=== PATIENT | female | born 1960 | race Caucasian/White ===

== ENCOUNTER 2018-07-23 13:30 | Inpatient (IN) | payer BC ==
[2018-07-27] MEDS ORDERED: ACETAMINOPHEN 500 MG TABLET PO ONE (06:00)
[2018-07-27] MEDS ORDERED: CELECOXIB 100 MG CAPSULE PO ONE (06:00)
[2018-07-27] MEDS ORDERED: METOCLOPRAMIDE 10 MG TABLET PO ONE (06:00)
[2018-07-27] MEDS ORDERED: VANCOMYCIN 1GM/200ML PREMIX 1 GM/200 ML PIGGYBACK IVPB ONE (06:00)
[2018-07-27] MEDS ORDERED: FAMOTIDINE 20MG TABLET PO ONE (06:00)
[2018-07-27] MEDS ORDERED: SCOPOLAMINE 1 PATCH TDSY TD ONE (06:00)
[2018-07-27] MEDS ORDERED: CEFAZOLIN 2 Gram 2 GM/50 ML BAG IVPB ONE (06:00)
[2018-08-17] MEDS ORDERED: VANCOMYCIN 1GM/200ML PREMIX 1 GM/200 ML PIGGYBACK IVPB ONE (06:00)
[2018-08-17] MEDS ORDERED: ACETAMINOPHEN 500 MG TABLET PO ONE (06:00)
[2018-08-17] MEDS ORDERED: CELECOXIB 100 MG CAPSULE PO ONE (06:00)
[2018-08-17] MEDS ORDERED: FAMOTIDINE 20MG TABLET PO ONE (06:00)
[2018-08-17] MEDS ORDERED: SCOPOLAMINE 1 PATCH TDSY TD ONE (06:00)
[2018-08-17] MEDS ORDERED: CEFAZOLIN 2 Gram 2 GM/50 ML BAG IVPB ONE (06:00)
[2018-08-17] MEDS ORDERED: METOCLOPRAMIDE 10 MG TABLET PO ONE (06:00)
[2018-08-17] MEDS ORDERED: RINGERS SOLUTION,LACTATED 1,000 ML IV ONE ×3 (10:45→14:40)
[2018-08-17 11:30] LABS: ABO GROUP O; ANTIBODY SCREEN NEGATIVE (NEGATIVE); RH TYPE POSITIVE
[2018-08-17] MEDS ORDERED: BUPIVACAINE LIPOSOME 266MG/20ML VIAL SQ ONE (13:30)
[2018-08-17] MEDS ORDERED: BUPIVACAINE 0.5% W/EPI MPF 30 ML VIAL SQ ONE (13:30)
[2018-08-17] MEDS ORDERED: VANCOMYCIN HCL 3,000 MG in RINGERS SOLUTION,LACTATED 3,000 ML IVPB ONE (13:30)
[2018-08-17] MEDS ORDERED: METOCLOPRAMIDE HCL 10 MG/2 ML VIAL IVP PRN (14:51)
[2018-08-17] MEDS ORDERED: ZOLPIDEM TARTRATE 5 MG TABLET PO PRN (14:51)
[2018-08-17] MEDS ORDERED: ACETAMINOPHEN W/ CODEINE 300MG/60MG TABLET PO PRN ×2 (14:51)
[2018-08-17] MEDS ORDERED: NALOXONE 0.4 MG/1 ML VIAL IVP PRN (14:51)
[2018-08-17] MEDS ORDERED: DIPHENHYDRAMINE HCL 25 MG CAPSULE PO PRN (14:51)
[2018-08-17] MEDS ORDERED: ONDANSETRON HCL IV 4 MG/2 ML VIAL IVP PRN (14:51)
[2018-08-17] MEDS ORDERED: HYDROCODONE/APAP 5/325MG TABLET PO PRN (14:51)
[2018-08-17] MEDS ORDERED: ACETAMINOPHEN 325 MG TAB PO PRN (14:51)
[2018-08-17] MEDS ORDERED: ACETAMINOPHEN W/ CODEINE 300MG/30MG TABLET PO PRN ×2 (14:51)
[2018-08-17] MEDS ORDERED: KETOROLAC 30 MG/ML VIAL IVP PRN ×2 (14:51)
[2018-08-17] MEDS ORDERED: AL HYDROX/MAG HYDROX 30ML UD PO PRN (14:51)
[2018-08-17] MEDS ORDERED: MAGNESIUM HYDROXIDE 30 ML UDC PO PRN (14:51)
[2018-08-17] MEDS ORDERED: HYDROMORPHONE HCL 2 MG/ML VIAL IM PRN ×2 (14:51)
[2018-08-17] MEDS ORDERED: BISACODYL 10 MG SUPP RC PRN (14:51)
[2018-08-17] MEDS ORDERED: HYDROCODONE/APAP 7.5/325MG TABLET PO PRN ×2 (14:51)
[2018-08-17] MEDS ORDERED: PROMETHAZINE HCL 12.5 MG in 0.9 % SODIUM CHLORIDE 100ML 50 ML IVPB PRN (14:51)
[2018-08-17] MEDS ORDERED: TRAMADOL HCL 50 MG TABLET PO PRN ×2 (14:51)
[2018-08-17] MEDS ORDERED: ALBUTEROL HFA 8 GM INHALER INH PRN (15:34)
[2018-08-17] MEDS ORDERED: ALBUTEROL SULFATE (0.083%) 2.5 MG/3 ML NEB INH PRN (15:34)
[2018-08-17] MEDS ORDERED: PANTOPRAZOLE SODIUM 40 MG TABLET PO PRN (15:35)
[2018-08-17] MEDS ORDERED: DEXTROSE 5 % AND 0.9 % NACL 1,000 ML IV PRN (16:00)
[2018-08-17] MEDS: FERROUS SULFATE 325 MG TAB PO SCH (21:25)
[2018-08-17] MEDS: DOCUSATE SODIUM 100 MG CAPSULE PO SCH (21:25)
[2018-08-17] MEDS: HYDROCODONE/APAP 5/325MG TABLET PO PRN (21:28)
[2018-08-17] MEDS: VANCOMYCIN 1GM/200ML PREMIX 1 GM/200 ML PIGGYBACK IVPB SCH (22:37)
[2018-08-18] MEDS: HYDROCODONE/APAP 5/325MG TABLET PO PRN ×2 (01:10→09:39)
[2018-08-18 06:18] LABS: HEMATOCRIT 35.2 % (35.0-47.0); HEMOGLOBIN 11.1 gm/dl (11.6-16.0)
[2018-08-18] MEDS: FERROUS SULFATE 325 MG TAB PO SCH (09:35)
[2018-08-18] MEDS: DOCUSATE SODIUM 100 MG CAPSULE PO SCH (09:35)
[2018-08-18] MEDS ORDERED: BREO PO SCH (10:00)
[2018-08-18] MEDS ORDERED: CELECOXIB 100 MG CAPSULE PO SCH (10:00)
[2018-08-18] MEDS ORDERED: RIVAROXABAN 10 MG TABLET PO SCH (10:00)
[2018-08-18] MEDS ORDERED: PATIENT OWN MED: AMLODIPINE 10 MG PO SCH (10:00)
--- NOTE | 2018-08-18 10:20 | Rehab Evaluation ---
Patient Information - Patient Information Diagnosis: R hip OA Ordered Treatment: PT Evaluate and Treat Status: Initial Evaluation Surgery: Yes (THR R LE) Date of Surgery: 08/17/18 Past Medical/Surgical Hx: PAST MEDICAL/SURGICAL HISTORY Past Surgical History APPY HYST OOPHERECTOMY D AND C PMH - Respiratory Hx Respiratory Disorders Yes Hx Bronchitis Yes: NOTHING RECENT Hx Chronic Obstructive Yes: CONTROLLED WITH INHALER UNLESS SHE HAS URI Pulmonary Disease (COPD) THEN USES NEBULIZER ALSO Hx Pneumonia Yes: IN THE PAST Hx of SOB Yes: WITH EXERTION PMH - Cardiovascular Hx Cardiovascular Disorders Yes Hx Edema Yes: FEET AND ANKLES Hx Hypertension Yes: ON MEDS WITH GOOD CONTROL Exercise Tolerance Good Hx of Migraines Yes: HX OF PMH - Neuro Hx Neurological Disorders Yes Hx Neuropathy Yes: FEET PMH - GI Hx Gastrointestinal Disorders Yes Hx Gastroesophageal Reflux Yes Hx Obstructive Bowel AT TIMES Hx Ulcer Yes: HX OF PMH - Hx Genitourinary Disorders No PMH - Endocrine Hx Endocrine Disorders No PMH - Musculoskeletal Hx Musculoskeletal Disorders Yes Hx Arthritis Yes: HIPS AND SPINE PMH - Psych Hx Psychiatric Problems No Hx Anxiety Yes: HX OF Hx Depression Yes: HX OF PMH - Hematology/Oncology Hx Hematology/Oncology No Disorders Premorbid Status: Detail (The patient was independent with all mobility prior to surgery.) Social History: Detail (The patient lives with spouse in a one story house with no stairs at the enterance. The patient has one step in the living area ( curb type of step). The bathroom is equipped with a tub/shower combination wtih a tub seat and a toilet with a riser seat. No grab bars are present in the bathroom. The patient has a front wheeled walker.) Precautions: [place], Fall, Other (Total Hip Precautions, WBAT on the R LE.) - Time With Patient Total Time Spent With Patient (Min): 30 Treatment Procedures: Detail (Initial evaluation low complexity, gait training.) Subjective Information - Subjective Information Per Patient (The patient had minimal complaints of R hip pain but did not rate her pain using 0-10 pain scale.) Objective Data - Mental Status Patient Orientation: Oriented x3 - Visual Perception Appears within normal limits for therapeutic activities - ROM Not within normal limits (The patient's R hip is within total hip precautions.) - Strength/Tone Not within normal limits (The patient's R LE strength was not tested s/p surgery however is functional. The L LE is WFL.) - Bed Mobility Independent (The patient was independent with supine to and from sit transfer.) - Transfers Independent (The patient was independent with sit to and from stand transfer.) - Balance Balance Sitting: Good Balance Standing: Good - Sensation Intact - Gait Detail (The patient ambulated with front wheeled walker WBAT on the R LE independently a distance of 65 feet x 1. The patient declined stair climbing but was able to verbalize the correct technique.) Therapy Assessment - Therapy Assessment Detail (The patient is independent with bed mobility, transfers and ambulation. The patient has met all inpatient PT goals.) Patient Education - Patient Education Teaching Topic: Exercise/Activity (The patient completed the following THR exercises: hip abduction supine, supine heel slides, quad sets, hamstring sets, gluteal sets and ankle pumps.), Precautions (The patient was able to follow THR precautions and was able to verbalize THR precautions.) Response: Return Demonstration Teaching Method: Demonstration, Handout Teaching Recipient: Patient Barriers To Learning: Age Related Problem List - Problem List Physical Therapy Problem List: Detail (Decreased L LE strength) Goals - Goals Physical Therapy Goals: All inpatient PT goals have been met. Prognosis - Prognosis Good Plan - Plan Physical Therapy Plan: The patient is discharged from inpatient PT and is to continue with Home PT.
[2018-08-18] MEDS ORDERED: PROPOFOL 10 MG/ML VIAL IV ONE (11:27)
[2018-08-18] MEDS ORDERED: MIDAZOLAM HCL 2MG/2ML VIAL IV ONE (11:27)
--- NOTE | 2018-08-18 11:33 | Rehab Evaluation ---
Patient Information - Patient Information Diagnosis: R hip OA Ordered Treatment: OT Evaluate and Treat Status: Initial Evaluation Surgery: Yes (THR R LE) Date of Surgery: 08/17/18 Past Medical/Surgical Hx: PAST MEDICAL/SURGICAL HISTORY Past Surgical History APPY HYST OOPHERECTOMY D AND C PMH - Respiratory Hx Respiratory Disorders Yes Hx Bronchitis Yes: NOTHING RECENT Hx Chronic Obstructive Yes: CONTROLLED WITH INHALER UNLESS SHE HAS URI Pulmonary Disease (COPD) THEN USES NEBULIZER ALSO Hx Pneumonia Yes: IN THE PAST Hx of SOB Yes: WITH EXERTION PMH - Cardiovascular Hx Cardiovascular Disorders Yes Hx Edema Yes: FEET AND ANKLES Hx Hypertension Yes: ON MEDS WITH GOOD CONTROL Exercise Tolerance Good Hx of Migraines Yes: HX OF PMH - Neuro Hx Neurological Disorders Yes Hx Neuropathy Yes: FEET PMH - GI Hx Gastrointestinal Disorders Yes Hx Gastroesophageal Reflux Yes Hx Obstructive Bowel AT TIMES Hx Ulcer Yes: HX OF PMH - Hx Genitourinary Disorders No PMH - Endocrine Hx Endocrine Disorders No PMH - Musculoskeletal Hx Musculoskeletal Disorders Yes Hx Arthritis Yes: HIPS AND SPINE PMH - Psych Hx Psychiatric Problems No Hx Anxiety Yes: HX OF Hx Depression Yes: HX OF PMH - Hematology/Oncology Hx Hematology/Oncology No Disorders Premorbid Status: Detail (The patient was independent with all ADLs and functional mobility, driving, and working prior to surgery.) Social History: Detail (The patient lives with spouse in a one story house with no stairs at the entrance. The patient has one small step in the living area (curb type of step). The bathroom is equipped with a tub/shower combination with a tub seat, hand-held shower, and a toilet with a riser seat. No grab bars are present in the bathroom. The patient has a front wheeled walker, a cane, and a zigzag elastic attacher.) Precautions: [place], Fall, Other (Total Hip Precautions, WBAT on the R LE.) - Time With Patient Total Time Spent With Patient (Min): 24 (1 eval) Treatment Procedures: Detail (OT eval: low complexity) Subjective Information - Subjective Information Per Patient (Pt agreeable to OT eval, supine in bed upon arrival.) Objective Data - Pain Pain Present: Yes (4/10 d/t just finished walking/stairs with PT) - Mental Status Patient Orientation: Oriented x3 - Visual Perception Appears within normal limits for therapeutic activities - ROM Within normal limits - Strength/Tone Within normal limits - Coordination Appears within normal limits for therapeutic activities - Bed Mobility Independent (supine > EOB indep. MIN for EOB > supine to elevate R LE. OT educated Pt on adaptive technique to elevate leg at home, Pt verbalizes understanding and also reports her spouse can assist.) - Transfers Independent (sit to/from stand to FWW, no balance or safety concerns) - Balance Balance Sitting: Good Balance Standing: Good (Good- standing balance with occassional uni support on walker and GB during standing pant mgmt) - Sensation Intact - Gait Detail (Functional mobility within bedroom MOD I with FWW, good safety awareness and follow through with SAJI precautions.) - ADL's/IADL's Detail (OT educated Pt on AE for LB dressing - Pt demos good follow through and MOD I, reports her will assist with socks and shoes at DC but verbalizes understanding where to obtain device if she changes her mind. Pt verbalizes 3/3 hip precautions at end of session and demos good follow through throughout Tx. OT educates Pt on home safety, including tub TF, modified technique to maintain hip prec. during low TFs, and kitchen/bathroo safety - Pt verbalizes understanding.) Therapy Assessment - Therapy Assessment Detail (Pt demos safety and independence with all ADLs and functional TFs with FWW. Rec. home DC with spouse assist PRN when medically ready.) Patient Education - Patient Education Teaching Topic: Equipment Use, Precautions Response: Return Demonstration, Verbalize Understanding Teaching Method: Discussion, Demonstration Teaching Recipient: Patient Barriers To Learning: None Problem List - Problem List Physical Therapy Problem List: Detail (Decreased L LE strength) Occupational Therapy Problem List: Detail (No further skilled IP OT needs identified.) Goals - Goals Physical Therapy Goals: All inpatient PT goals have been met. Occupational Therapy Goals: No further skilled IP OT needs/goals identified. Prognosis - Prognosis Good Plan - Plan Physical Therapy Plan: The patient is discharged from inpatient PT and is to continue with Home PT. Occupational Therapy Plan: No further skilled IP OT needs identified. DC IP OT services. Thank you for this referral.
[2018-08-18] MEDS: VANCOMYCIN 1GM/200ML PREMIX 1 GM/200 ML PIGGYBACK IVPB SCH (11:35)
[2018-08-18] MEDS ORDERED: TRANEXAMIC ACID 1,000 MG/10 ML ML IV ONE (16:44)
--- NOTE | 2018-08-19 08:01 | Operative Note ---
DATE OF SURGERY: 08/17/2018 PREOPERATIVE DIAGNOSIS: Right hip end-stage arthrosis. POSTOPERATIVE DIAGNOSIS: Right hip end-stage arthrosis. OPERATION: Right total hip arthroplasty cemented. SURGEON: Kaden Santos MD ANESTHESIA: Spinal. COMPLICATIONS: None. ESTIMATED BLOOD LOSS: 200 mL OPERATIVE FINDINGS: [id number] hip arthrosis. COMPONENTS PLACED: A 2 g vancomycin cement Jacob[employer] cemented collared Synergy total hip arthroplasty system size 14 high offset with a 32 plus 8 mm femoral head component, a 54 three-hole Reflection acetabular shell component with 2 screw caps, centrally-threaded screw cap, a 40 mm acetabular screw, and a 35-degree hooded highly crosslinked polyethylene liner. INDICATION: This is a 58-year-old female who has had persistent pain and dysfunction in her right hip for several years. Failed nonoperative treatment. She has steroid-dependent inhaler COPD and she is scheduled for the procedure above. I explained all risks and benefits in detail for the diagnosis and procedure including but not limited to infection, nerve injury, vessel injury, persistent pain, stiffness, numbness, tingling in his hip, periprosthetic fracture, need for resection arthroplasty should the components become infected or loosen, nerve injury, vessel injury, blood clot, limb length discrepancy, need for anticoagulation to prevent blood clots and risks associated with these medications. All of her questions were answered. The rehab and healing course were outlined. She agreed to proceed. PROCEDURE: The patient brought to the OR and placed in the left lateral decubitus position. The right hip and lower extremity prepped and draped in sterile fashion. Prepped again with Chloraprep after it was draped. Intraoperative timeout was performed. Next, an incision was marked over the posterior gluteal area posterior approach. It was infiltrated with 0.5% Marcaine with epinephrine, Exparel and Marcaine mixture. Skin and subcutaneous tissue dissected down to gluteal fascia. Gluteal fascia split longitudinally. The subgluteal plane was bluntly dissected. Self- retainer was brought in. We identified the sciatic nerve, carefully protected at all times. Released the short external rotators, incised the capsule in inverted T fashion. Dislocated the femoral head. The femoral head was severely deformed. There was a large step-off in it devoid of any cartilage and bone on bone. Next, we then resected the head about 1.5 cm below the lesser trochanter. Inserted the box osteotome, inserted the reamer and worked in 1 mm increments up to size 14. We broached at a 12 in 15 degrees anteversion with a 13 and then a 14 and had a good fit. Next, then attention turned to the acetabulum. Released the capsule anterior. Placed inferior acetabular retractor to retract it anteriorly. Had good exposure on the eroded acetabulum. She had superior and anterior wall deficits and erosion from her superolateral subluxation. Next, then started reaming, medialized and centralized with a 44 mm reamer working in 1 mm increments up to a size 53 reaming in 45 degrees inclination and 20 degrees anteversion. Once we had adequate fit centrally and peripherally, we then trialed the 54 shell and it did fit nicely in the same orientation. We then irrigated copiously. Changed gloves, brought in clean sheet. Impacted down the real acetabular Reflection shell component. Verified it was down in the medial wall. We then drilled a posterior central superior quadrant screw hole, inserted the 40 mm screw and had a good purchase. We then placed a trial liner and did a trial reduction. Best combination range of motion, stability, and leg lengths was with a 32 plus 8 mm femoral head component. This allowed for good abductor tension and reduction, flexion to 90 and rotation to 80 before the hip dislocated. Stability with extension and external rotation. These were the sizes that were used. Next, we removed all trial components, irrigated the acetabulum copiously, placed 2 screw caps and centrally-threaded screw cap, impacted down the real 35- degree vera liner with the vera in posterosuperior quadrant. Impacted that down, verified it was interlocked. We irrigated the femoral canal copiously, placed the cement restrictor distally, and checked the cement thoroughly using the cement technique, removing the suction catheter and then impacted down the real femoral stem until the collar was flush with the calcar again in 15 degrees of anteversion. Held it until the cement hardened. We cleaned and dried the trunnion, impacted down the real femoral head, reduced the hip and found that the range of motion to be the same. We irrigated copiously. Next, we injected our mixture of 0.5% Marcaine with epinephrine, tranexamic acid, and Exparel mixture deep in the short external rotators, deep capsule working out more superficially, periosteum, gluteus, subcutaneous. Next, closed the gluteal fascia securely with a running #2 quill suture. Irrigated again, closed the skin deep with 2-0 interrupted Vicryl. Provisional sterile dressing covered with Acticoat and abduction pillow, x-ray, and then be changed to a MARIA DEL CARMEN dressing prior to discharge. JAZLYN
--- NOTE | 2018-08-19 13:33 | RADIOLOGY REPORT ---
STUDY: Right hip. CLINICAL HISTORY: Status post right hip replacement. TECHNIQUE: Portable AP view of the right hip. COMPARISON: None. FINDINGS: Placement of right hip prosthesis appears satisfactory. No evidence of any acute bone complication. There are normal soft tissue postoperative changes present. IMPRESSION: Right hip replacement without evidence of immediate complication. SOFÍAD
== END 2018-08-18 16:45 | disposition home or self-care (01) | DRG 470 ==
LOC: EDSTATUS 13:30 → MEDSURG 08-17 09:53
PROVIDERS: ADMIT Orthopaedic Surgery; ATTEND Orthopaedic Surgery
PROC: 0SR9069 Replacement of Right Hip Joint with Oxidized Zirconium on Polyethylene Synthetic Substitute, Cemented, Open Approach (ICD-10-PCS; principal; 2018-08-17 12:00)
DX: M16.11 Unilateral primary osteoarthritis, right hip (principal); I10 Essential (primary) hypertension; J44.9 Chronic obstructive pulmonary disease, unspecified; K21.9 Gastro-esophageal reflux disease without esophagitis
CPT/HCPCS: 85014; 85018; 86850; 86900; 86901; 94640; C1776; J2405; J3370; J7120

== ENCOUNTER 2019-02-08 12:00 | Inpatient (IN) | payer BC ==
[~2019-02-08 12:00] MED LIST: ACETAMINOPHEN 500 MG TABLET PO ONE; CEFAZOLIN 2 Gram 2 GM/50 ML BAG IVPB ONE; CELECOXIB 100 MG CAPSULE PO ONE; FAMOTIDINE 20MG TABLET PO ONE; METOCLOPRAMIDE 10 MG TABLET PO ONE; SCOPOLAMINE 1 PATCH TDSY TD ONE; VANCOMYCIN 1GM/200ML PREMIX 1 GM/200 ML PIGGYBACK IVPB ONE
[2019-03-01] MEDS ORDERED: ACETAMINOPHEN 500 MG TABLET PO ONE (06:00)
[2019-03-01] MEDS ORDERED: CELECOXIB 100 MG CAPSULE PO ONE (06:00)
[2019-03-01] MEDS ORDERED: METOCLOPRAMIDE 10 MG TABLET PO ONE (06:00)
[2019-03-01] MEDS ORDERED: CEFAZOLIN 2 Gram 2 GM/50 ML BAG IVPB ONE (06:00)
[2019-03-01] MEDS ORDERED: VANCOMYCIN 1GM/200ML PREMIX 1 GM/200 ML PIGGYBACK IVPB ONE (06:00)
[2019-03-01] MEDS ORDERED: FAMOTIDINE 20MG TABLET PO ONE (06:00)
[2019-03-01] MEDS ORDERED: SCOPOLAMINE 1 PATCH TDSY TD ONE (06:00)
[2019-03-01] MEDS ORDERED: RINGERS SOLUTION,LACTATED 1,000 ML IV ONE ×3 (10:28→13:35)
[2019-03-01 10:48] LABS: ABO GROUP O; RH TYPE POSITIVE
[2019-03-01 10:49] LABS: ANTIBODY SCREEN NEGATIVE (NEGATIVE)
[2019-03-01] MEDS ORDERED: BUPIVACAINE LIPOSOME 266MG/20ML VIAL SQ ONE (13:11)
[2019-03-01] MEDS ORDERED: BUPIVACAINE 0.5% W/EPI MPF 30 ML VIAL SQ ONE ×2 (13:11)
[2019-03-01] MEDS ORDERED: VANCOMYCIN HCL 1 GM VIAL IR ONE (13:12)
[2019-03-01] MEDS ORDERED: VANCOMYCIN HCL 1 GM VIAL IU ONE (13:12)
[2019-03-01] MEDS ORDERED: TRANEXAMIC ACID 1,000 MG/10 ML ML IVPB ONE (13:13)
[2019-03-01] MEDS ORDERED: HYDROMORPHONE HCL 2 MG/ML VIAL IM PRN ×2 (14:16)
[2019-03-01] MEDS ORDERED: METOCLOPRAMIDE HCL 10 MG/2 ML VIAL IVP PRN (14:16)
[2019-03-01] MEDS ORDERED: NALOXONE 0.4 MG/1 ML VIAL IVP PRN (14:16)
[2019-03-01] MEDS ORDERED: BISACODYL 10 MG SUPP RC PRN (14:16)
[2019-03-01] MEDS ORDERED: ZOLPIDEM TARTRATE 5 MG TABLET PO PRN (14:16)
[2019-03-01] MEDS ORDERED: MAGNESIUM HYDROXIDE 30 ML UDC PO PRN (14:16)
[2019-03-01] MEDS ORDERED: KETOROLAC 30 MG/ML VIAL IVP PRN (14:16)
[2019-03-01] MEDS ORDERED: TRAMADOL HCL 50 MG TABLET PO PRN ×2 (14:16)
[2019-03-01] MEDS ORDERED: PROMETHAZINE HCL 12.5 MG in 0.9 % SODIUM CHLORIDE 100ML 50 ML IVPB PRN (14:16)
[2019-03-01] MEDS ORDERED: ACETAMINOPHEN 325 MG TAB PO PRN (14:16)
[2019-03-01] MEDS ORDERED: ACETAMINOPHEN W/ CODEINE 300MG/30MG TABLET PO PRN ×2 (14:16)
[2019-03-01] MEDS ORDERED: DIPHENHYDRAMINE HCL 25 MG CAPSULE PO PRN (14:16)
[2019-03-01] MEDS ORDERED: ACETAMINOPHEN W/ CODEINE 300MG/60MG TABLET PO PRN (14:16)
[2019-03-01] MEDS ORDERED: ONDANSETRON HCL IV 4 MG/2 ML VIAL IVP PRN (14:16)
[2019-03-01] MEDS ORDERED: HYDROCODONE/APAP 7.5/325MG TABLET PO PRN (14:16)
[2019-03-01] MEDS ORDERED: HYDROCODONE/APAP 5/325MG TABLET PO PRN (14:16)
[2019-03-01] MEDS ORDERED: AL HYDROX/MAG HYDROX 30ML UD PO PRN (14:16)
[2019-03-01] MEDS ORDERED: FLU VAC QS 2019-20 (INPT, 6MO+) 60MCG/0.5ML IM ONE (15:17)
--- NOTE | 2019-03-01 15:28 | RADIOLOGY REPORT ---
EXAMINATION: Left Hip Single View EXAM DATE: 03/01/2019 2:53 PM TECHNIQUE: AP INDICATION: Post left total hip arthroplasty COMPARISON: None ENCOUNTER: Initial FINDINGS: Left hip arthroplasty prosthesis is demonstrated with expected alignment. No fracture is visualized. Expected foci of soft tissue gas. IMPRESSION: Postoperative imaging without evidence of complication Dictated by: VICK ARREGUIN MD on 03/01/2019 3:24 PM. .
[2019-03-01] MEDS ORDERED: VENTOLIN HFA INH PRN (15:41)
[2019-03-01] MEDS ORDERED: CALCIUM CARBONATE 500 MG PO PRN (15:41)
[2019-03-01] MEDS: DEXTROSE 5 % AND 0.9 % NACL 1,000 ML IV PRN (16:44)
--- NOTE | 2019-03-01 17:20 | Rehab Evaluation ---
Patient Information - Patient Information Diagnosis: L hip OA Ordered Treatment: PT Evaluate and Treat Status: Initial Evaluation Surgery: Yes (L THR) Date of Surgery: 03/01/19 Past Medical/Surgical Hx: PAST MEDICAL/SURGICAL HISTORY Past Surgical History RTHA APPY HYST OOPHERECTOMY D AND C PMH - Respiratory Hx Respiratory Disorders Yes Hx Bronchitis Yes: NOTHING RECENT Hx Chronic Obstructive Yes: CONTROLLED WITH INHALER UNLESS SHE HAS URI Pulmonary Disease (COPD) THEN USES NEBULIZER ALSO Hx Pneumonia Yes: IN THE PAST Hx of SOB Yes: WITH EXERTION PMH - Cardiovascular Hx Cardiovascular Disorders Yes Hx Edema Yes: FEET AND ANKLES Hx Hypertension Yes: ON MEDS WITH GOOD CONTROL Exercise Tolerance Fair Hx of Migraines Yes: HX OF PMH - Neuro Hx Neurological Disorders Yes Hx Neuropathy Yes: FEET PMH - GI Hx Gastrointestinal Disorders Yes Hx Gastroesophageal Reflux Yes Hx Obstructive Bowel AT TIMES Hx Ulcer Yes: HX OF PMH - Hx Genitourinary Disorders No PMH - Endocrine Hx Endocrine Disorders No PMH - Musculoskeletal Hx Musculoskeletal Disorders Yes Hx Arthritis Yes: HIPS AND SPINE PMH - Psych Hx Psychiatric Problems No Hx Anxiety Yes: HX OF Hx Depression Yes: HX OF PMH - Hematology/Oncology Hx Hematology/Oncology No Disorders Premorbid Status: Detail (The patient lives with spouse in a one story house with no stairs at the enterance. The bathroom is equipped with a tub/shower combination, shower bench, standard height toilet with riser seat. The patient has a front wheeled walker and a standard cane.) Precautions: [place], Fall, Other (WBAT on the L LE and THR precautions.) - Time With Patient Total Time Spent With Patient (Min): 30 Treatment Procedures: Detail (Initial Evaluation, low complexity) Subjective Information - Subjective Information Per Patient (The patient had no complaints of pain but did complain of lightheadedness after PT treatment when sitting on bed."I feel like I'm going to faint.") Objective Data - Mental Status Patient Orientation: Oriented x3 - Visual Perception Appears within normal limits for therapeutic activities - ROM Not within normal limits (L hip AROM is within THR precautions. All other LE AROM is WNL.) - Strength/Tone Not within normal limits (The patient's LE strength was not tested however was functional.) - Bed Mobility Independent (The patient was independent with supine to and from sit transfer.) - Transfers Independent (The patient was independent with sit to and from stand transfer and toilet transfer.) - Balance Balance Sitting: Good Balance Standing: Good - Gait Detail (The patient ambulated with front wheeled walker WBAT on the L LE with supervision for safety 7.5 feet x 2. The patient declined to ambulate in the bryan secondary to "feeling not stable." When the patient returned to the bed she stated she felt like she was going to faint. The patient felt better after lying down.) Therapy Assessment - Therapy Assessment Detail (The patient was independent with bed mobility and transfers and required supervision for safety. The patient will be seen for 1 to 2 more sessions to complete inpt. PT goals.) Problem List - Problem List Physical Therapy Problem List: Detail (Decreased L LE strength) Goals - Goals Physical Therapy Goals: 1) The patient will ambulate 100 feet with front wheeled walker WBAT on the L LE independently. 2) The patient will be independent with THR HEP. 3) The patient will verbalize good understanding of THR precautions. 4) Pt. will verbalize proper technique for stair climbing. Plan - Plan Physical Therapy Plan: PT 1-2 sessions for gait training on levels and instruction in HEP.
[2019-03-01] MEDS: HYDROCODONE/APAP 5/325MG TABLET PO PRN (18:18)
[2019-03-01] MEDS: FERROUS SULFATE 325 MG TAB PO SCH (21:49)
[2019-03-01] MEDS: DOCUSATE SODIUM 100 MG CAPSULE PO SCH (21:49)
[2019-03-01] MEDS: VANCOMYCIN 1GM/200ML PREMIX 1 GM/200 ML PIGGYBACK IVPB SCH (21:50)
[2019-03-02] MEDS: DEXTROSE 5 % AND 0.9 % NACL 1,000 ML IV PRN (01:53)
[2019-03-02] MEDS: HYDROCODONE/APAP 5/325MG TABLET PO PRN ×2 (04:18→09:12)
[2019-03-02 06:47] LABS: HEMATOCRIT 35.5 % (35.0-47.0)
--- NOTE | 2019-03-02 08:16 | Rehab Evaluation ---
Patient Information - Patient Information Diagnosis: L hip OA Ordered Treatment: OT Evaluate and Treat Status: Initial Evaluation Surgery: Yes (L THR) Date of Surgery: 03/01/19 Past Medical/Surgical Hx: PAST MEDICAL/SURGICAL HISTORY Past Surgical History RTHA APPY HYST OOPHERECTOMY D AND C PMH - Respiratory Hx Respiratory Disorders Yes Hx Bronchitis Yes: NOTHING RECENT Hx Chronic Obstructive Yes: CONTROLLED WITH INHALER UNLESS SHE HAS URI Pulmonary Disease (COPD) THEN USES NEBULIZER ALSO Hx Pneumonia Yes: IN THE PAST Hx of SOB Yes: WITH EXERTION PMH - Cardiovascular Hx Cardiovascular Disorders Yes Hx Edema Yes: FEET AND ANKLES Hx Hypertension Yes: ON MEDS WITH GOOD CONTROL Exercise Tolerance Fair Hx of Migraines Yes: HX OF PMH - Neuro Hx Neurological Disorders Yes Hx Neuropathy Yes: FEET PMH - GI Hx Gastrointestinal Disorders Yes Hx Gastroesophageal Reflux Yes Hx Obstructive Bowel AT TIMES Hx Ulcer Yes: HX OF PMH - Hx Genitourinary Disorders No PMH - Endocrine Hx Endocrine Disorders No PMH - Musculoskeletal Hx Musculoskeletal Disorders Yes Hx Arthritis Yes: HIPS AND SPINE PMH - Psych Hx Psychiatric Problems No Hx Anxiety Yes: HX OF Hx Depression Yes: HX OF PMH - Hematology/Oncology Hx Hematology/Oncology No Disorders Premorbid Status: Detail (The patient lives with spouse in a one story house with no stairs at the entrance. The bathroom is equipped with a tub/shower combination, shower bench, standard height toilet with riser seat. The patient has a front wheeled walker and a standard cane as well as 3 reachers. Prior to surgery she was Ind with meal prep, laundry and home mgmt tasks.) Precautions: [place], Fall, Other (WBAT on the L LE and THR precautions.) Subjective Information - Subjective Information Per Patient Objective Data - Pain Pain Present: Yes (03/29) - Mental Status Patient Orientation: Oriented x3 - Visual Perception Appears within normal limits for therapeutic activities - ROM Within normal limits (Liang UE AROM WNL) - Strength/Tone Within normal limits (Liang UE strength WNL) - Coordination Appears within normal limits for therapeutic activities - Bed Mobility Independent (Ind with supine to sit) - Transfers Independent (Ind with sit to stand from EOB) - Balance Balance Sitting: Good Balance Standing: Good - Sensation Intact - Gait Detail (Pt ambulating in room with 2 wheeled walker and supervision) - ADL's/IADL's Detail (Reviewed modified LE dressing techniques and use of adaptive equipment to allow LE dressing within hip precautions. Pt was able to doff slipper socks and briefs and don clean briefs and pants Indly with puller through. She reports she typically doesn't wear socks and spouse can assist if needed. Reviewed kitchen and shower safety and modifications, pt verbalized understanding.) Therapy Assessment - Therapy Assessment Detail (Pt is Ind with modified LE dressing techniques using adaptive equipment.) Problem List - Problem List Physical Therapy Problem List: Detail (Decreased L LE strength) Occupational Therapy Problem List: Detail (No current IP OT problems identified.) Goals - Goals Physical Therapy Goals: 1) The patient will ambulate 100 feet with front wheeled walker WBAT on the L LE independently. 2) The patient will be independent with THR HEP. 3) The patient will verbalize good understanding of THR precautions. 4) Pt. will verbalize proper technique for stair climbing. Occupational Therapy Goals: No current IP OT goals identified. Prognosis - Prognosis Good Plan - Plan Physical Therapy Plan: PT 1-2 sessions for gait training on levels and instruction in HEP. Occupational Therapy Plan: Pt is discharged from IP OT at this time. Thank you for this referral.
--- NOTE | 2019-03-02 08:39 | Operative Note ---
DATE OF SURGERY: 03/01/2019 PREOPERATIVE DIAGNOSIS: END-STAGE LEFT HIP ARTHROSIS. POSTOPERATIVE DIAGNOSIS: END-STAGE LEFT HIP ARTHROSIS. OPERATION: LEFT TOTAL HIP ARTHROPLASTY. SURGEON: Kaden Santos M.D. ANESTHESIA: Spinal. ANESTHESIA PROVIDER: DAYSI Winkler CRNA COMPLICATIONS: None. ESTIMATED BLOOD LOSS: 200 ml OPERATIVE FINDINGS: [id number] hip arthrosis. COMPONENTS PLACED: 2 gram Vancomycin cemented [employer] Synergy total hip arthroplasty system collared high offset size 14 with a 52 mm 30 reflection acetabular shell, 2 screw caps, centrally threaded screw cap, and a 35 degree high crosslinked polyethylene line and a 32 plus 0 mm Oxinium femoral head component. INDICATION: This is a 58-year-old female who also has history of COPD and asthma and she is on steroid inhalers. We have already done a right cemented hip replacement in August of last year and she is now scheduled for a left. I explained the risks and benefits in detail for the diagnosis and procedure including, but not limited to infection, nerve injury, vessel injury persistent pain, stiffness, numbness, tingling in her hip, periprosthetic fracture, need for resection arthroplasty should the components become infected or loosen, nerve injury, vessel injury, blood clot, and need for further procedures, limb length discrepancy, and all of her questions were answered, rehab course was outline, and she agreed to proceed. PROCEDURE: The patient was brought to the Operating Room and placed in the right lateral decubitus position. The left hip and lower extremity prepped and draped in sterile fashion. Prepped again using ChloraPrep and draped. Intraoperative timeout was performed. Next, we reprepped the hip again and it was draped. Next the incision was marked using a template over the gluteal area for posterior approach and infiltrated with 0.5% Marcaine with Epinephrine, Exparel and tranexamic acid mixture which was used at the end of the case and then deep in the superficial tissues. The skin and subcutaneous tissues are dissected down, we split the gluteal fascia longitudinally, the subgluteal plane was blunted dissected and brought in self retainer, identified the sciatic nerve, carefully protected at all times. Took off the short external rotators, and protected the sciatic nerve, we incised the capsule in a T-shape and dislocated the femoral head. It was completely devoid of any articular cartilage, it was deformed and arthritic. Next resected the femoral head about 1 cm above the lesser trochanter and inserted the box osteotome and then started reaming working in 1 mm increments from an 8 up to a size 14, we stopped there, and broached to a 12 and 20 degrees anteversion calcar plane and then a 13 and 20 degrees anteversion and a 14. We stopped and turned our attention to the acetabulum, released the anterior capsule on the acetabulum, placed an inferior acetabular retractor and retracted it anteriorly. We exposed the acetabulum. Next we resected some of the labrum and capsule around the periphery. We then started reaming in 1 mm increments, 45 degree inclination and 20 degrees anteversion until we reamed up to a size 51. We stopped there and impacted down a 52 shell and it fit nicely medially and peripherally and that was the size that we used. We irrigated it copiously, changed gloves, and we re-impacted down the real acetabular shell using the helicopter guide and 45 degrees inclination and 20 degree anteversion again and was flush with the medial wall. Next, we drilled the posterior central superior quadrant screw up the posterior column measured for 40 mm screw and inserted the screw and had a good purchase. Next we placed a trial liner, did a trial reduction of the trial stem and symmetric leg lengths was the standard 32 0 head. This allowed for symmetric leg lengths, flexion to 90, internal rotation to 80 before the hip dislocates to extension and external rotation as well. Next we removed all trial components, irrigated copiously, we mixed cement, inserted two screw caps and the centrally threaded screw cap and impacted down the real poly ethylene liner with the vera in the posterior superior quadrant. We irrigated the femoral canal, placed cement in the restrictor, we dried the canal using the CarboJet and inserted the suction catheter. We injected cement in symmetrical technique and removed the catheter and then impacted down the real femoral stem until the collar was flush with the medial calcar again in 15 degrees of anteversion. It was held there until cement hardened. We cleaned and dried the trunnion and impacted down the real femoral head component. We reduced the hip and found the range of motion to be the same. Irrigated copiously. We injected deep external rotators into the periosteum with our mixture and then closed the gluteal fascia and injected the gluteal as well and then closed subcutaneous with buried 2-0 Vicryl and sterile dressing applied and a MARIA DEL CARMEN dressing. The patient tolerated the procedure well. No intraoperative complications. All sponge, needle, and blade counts are correct. Sent to Recovery in stable condition. Neurovascularly intact. She will be discharged to the floor and discharged home tomorrow. Follow-up in two weeks. JOB NUMBER: [id number] MTDD
[2019-03-02] MEDS: DOCUSATE SODIUM 100 MG CAPSULE PO SCH (09:10)
[2019-03-02] MEDS: FERROUS SULFATE 325 MG TAB PO SCH (09:10)
[2019-03-02] MEDS: VANCOMYCIN 1GM/200ML PREMIX 1 GM/200 ML PIGGYBACK IVPB SCH (09:12)
[2019-03-02] MEDS ORDERED: BREO INH SCH (10:00)
[2019-03-02] MEDS ORDERED: CELECOXIB 100 MG CAPSULE PO SCH (10:00)
[2019-03-02] MEDS ORDERED: AMLODIPINE 10MG PO SCH (10:00)
[2019-03-02] MEDS ORDERED: RIVAROXABAN 10 MG TABLET PO SCH (10:00)
--- NOTE | 2019-03-02 11:00 | Physical Therapy Tx Note ---
Physical Therapy Tx Note - Treatment Note Tolerated: Good Total Time Spent With Patient: 20 Physical Therapy Tx Note: Detail (The patient was up in chair when PT arrived. The patient had minimal complaints of L hip pain. The patient ambulated with front wheeled walker a distance of 100 feet x 1 WBAT on L LE independently. The patient was independent with supine to and from sit transfer. Car transfers were reviewed. The patient completed the following THR HEP including : supine heel slides, supine hip abduction, ankle pumps, quad sets, hamstring sets and gluteal sets. The patient's THR precautions were reviewed. The patient has met all inpt. goals. (Patient has no stairs at home but is aware of proper technique .)) Physical Therapy Problem List: Detail (Decreased L LE strength) Physical Therapy Goals: 1) The patient will ambulate 100 feet with front wheeled walker WBAT on the L LE independently. ( Goal Met). 2) The patient will be independent with THR HEP. (Goal Met). 3) The patient will verbalize good un derstanding of THR precautions (Goal Met). 4) Pt. will verbalize proper technique for stair climbing.(Goal Met) Physical Therapy Plan: The patient has met all inpt. PT goals and is discharged from inpt. PT.
[2019-03-02] MEDS ORDERED: PROPOFOL 10 MG/ML VIAL IV ONE (14:59)
[2019-03-02] MEDS ORDERED: MIDAZOLAM HCL 2MG/2ML VIAL IV ONE (14:59)
[2019-03-02] MEDS ORDERED: VASOPRESSIN 20 U/ML VIAL IM ONE (14:59)
[2019-03-02] MEDS ORDERED: PHENYLEPHRINE HCL 10 MG/ML VIAL IVP ONE (14:59)
[2019-03-02] MEDS ORDERED: LIDOCAINE 2% MDV (20MG/ML) 20ML VIAL IV ONE (14:59)
[2019-03-02] MEDS ORDERED: CEFAZOLIN 2 Gram 2 GM/50 ML BAG IVPB ONE (14:59)
== END 2019-03-02 15:00 | disposition home health service (06) | DRG 470 ==
LOC: MEDSURG 03-01 09:48
PROVIDERS: ADMIT Orthopaedic Surgery; ATTEND Orthopaedic Surgery
PROC: 0SRB069 Replacement of Left Hip Joint with Oxidized Zirconium on Polyethylene Synthetic Substitute, Cemented, Open Approach (ICD-10-PCS; principal; 2019-03-01 12:00)
DX: M16.12 Unilateral primary osteoarthritis, left hip (principal); I10 Essential (primary) hypertension; K21.9 Gastro-esophageal reflux disease without esophagitis; J44.9 Chronic obstructive pulmonary disease, unspecified
CPT/HCPCS: 85014; 85018; 86850; 86900; 86901; 90686; 94010; 94640; C1776; J1885; J2370; J3370; J3490; J7042; J7120